=== PATIENT | female | born 1945 | race African-American/Black ===

== ENCOUNTER 2019-03-12 11:07 | Emergency (ER) | payer MEDICARE ==
[~2019-03-12] VITALS: Ht 167.6 cm; Wt 98.0 kg
[~2019-03-12 11:07] MED LIST: HYDR25TA; LISI40TA4; RISE150T; VERA240C2
[2019-03-12 12:09] VITALS: BP 146/75
[2019-03-12] MEDS ORDERED: BACITRACIN ZINC OINT UDPKT TOP ONE (12:30)
[2019-03-12] MEDS ORDERED: TETANUS, DIPHTHERIA, PERTUSSIS VAC/PF 0.5ML (>7YR OLD) IM ONE (12:30)
[2019-03-12] MEDS: BACITRACIN 15GM TUBE TOP SCH ×2 (12:34→12:43)
== END 2019-03-12 12:48 | disposition home or self-care (01) ==
LOC: ER 11:07
DX: S90.522A Blister (nonthermal), left ankle, initial encounter (principal); E78.00 Pure hypercholesterolemia, unspecified; I10 Essential (primary) hypertension; X58.XXXA Exposure to other specified factors, initial encounter; Y93.89 Activity, other specified; Y92.89 Other specified places as the place of occurrence of the external cause; Y99.8 Other external cause status; Z79.899 Other long term (current) drug therapy
CPT/HCPCS: 90471; 90715; 99283